=== PATIENT | female | born 1930 | race Hispanic/Latino ===

== ENCOUNTER 2016-08-03 19:17 | Emergency (ER) | payer MEDICARE ==
--- NOTE | 2016-08-03 20:39 | XRay Report ---
FINAL REPORT PROCEDURE: XR FOOT 2V LT TECHNIQUE: Left foot radiographs, AP, lateral, and oblique views. HISTORY: injury/swelling and pain COMPARISON: No prior studies are available for comparison. FINDINGS: Fracture (s) and/or Dislocation(s): None . Alignment: Normal. 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 Soft tissues: Normal. Bone mineralization: Normal. Foreign bodies: None. Calcaneal spurring: There are small calcaneal spurs. IMPRESSION: There is no acute bony or soft tissue abnormality.
--- NOTE | 2016-08-03 21:42 | Emergency Department Report ---
ED Lower Extremity HPI - General Chief Complaint: Extremity Injury, Lower Stated Complaint: LEFT FOOT PAIN Time Seen by Provider: 08/03/16 21:28 Source: patient Mode of arrival: Ambulatory Limitations: No Limitations - History of Present Illness Complaint: foot injury -: Sudden, This afternoon Injury: Foot: Left (top of her foot) Type of Injury: other (while walking) Severity: mild Severity scale (0 -10): 3 Improves With: NSAID Worsens With: movement, palpation Context: walking Associated Symptoms: snap/pop sensation, ambulatory. denies: swelling, unable to bear weight - Related Data Previous Rx's Medication Instructions Recorded Last Taken Type traMADol [Ultram 50 MG tab] 50 mg PO Q4HR PRN #10 tablet 08/03/16 Unknown Rx Allergies Allergy/AdvReac Type Severity Reaction Status Date / Time Sulfa (Sulfonamide Allergy Nausea Verified 08/03/16 19:54 Antibiotics) ED Review of Systems ROS: Stated complaint: LEFT FOOT PAIN Other details as noted in HPI Constitutional: denies: chills, fever Respiratory: denies: cough, orthopnea, shortness of breath, SOB with exertion, SOB at rest Cardiovascular: denies: chest pain, palpitations Gastrointestinal: denies: nausea, vomiting Musculoskeletal: joint swelling, arthralgia Skin: denies: rash, lesions Neurological: denies: headache ED Past Medical Hx - Past Medical History Hx Hypertension: Yes Hx Diabetes: Yes - Surgical History Additional Surgical History: bilateral knees,left shoulder - Social History Smoking Status: Never Smoker Substance Use Type: None - Medications Home Medications: Home Medications Medication Instructions Recorded Confirmed Last Taken Type traMADol [Ultram 50 MG tab] 50 mg PO Q4HR PRN #10 tablet 08/03/16 Unknown Rx ED Physical Exam - General Limitations: No Limitations General appearance: alert, in no apparent distress - Head Head exam: Present: atraumatic, normocephalic - ENT ENT exam: Present: normal exam, normal orophraynx - Neck Neck exam: Present: normal inspection - Respiratory Respiratory exam: Present: normal lung sounds bilaterally. Absent: respiratory distress - Cardiovascular Cardiovascular Exam: Present: regular rate - Expanded Lower Extremity Exam Left Foot/Toe exam: Present: full ROM, tenderness (mild tenderness when palpating midline dorsal aspect of proximal foot crepitus, deformity, or bony tenderness noted.). Absent: swelling, ecchymosis, deformity, crepidus, erythema Neuro vascular tendon exam: Present: no vascular compromise. Absent: pulse deficit, abnormal cap refill, motor deficit, sensory deficit, tendon deficit Gait: Positive: observed and normal - Neurological Exam Neurological exam: Present: alert, oriented X3, CN II-XII intact ED Course Vital Signs 08/03/16 08/03/16 19:42 19:50 Temperature 98.7 F 98.7 F Pulse Rate 89 89 Respiratory 18 18 Rate Blood Pressure 182/97 Blood Pressure 182/97 [Right] O2 Sat by Pulse 97 97 Oximetry Critical care attestation.: If time is entered above; I have spent that time in minutes in the direct care of this critically ill patient, excluding procedure time. ED Disposition Clinical Impression: Sprain of foot, left Disposition: DISCHARGED TO HOME OR SELFCARE Is pt being admited?: No Condition: Stable Instructions: Foot Sprain (ED) Prescriptions: traMADol [Ultram 50 MG tab] 50 mg PO Q4HR PRN #10 tablet PRN Reason: Pain
[2016-08-03 22:03] VITALS: BP 151/89
== END 2016-08-03 22:06 | disposition home or self-care (01) ==
LOC: ED 19:17
DX: S93.602A Unspecified sprain of left foot, initial encounter (principal); X58.XXXA Exposure to other specified factors, initial encounter; Y93.9 Activity, unspecified; Y92.9 Unspecified place or not applicable; Y99.9 Unspecified external cause status; I10 Essential (primary) hypertension; F17.200 Nicotine dependence, unspecified, uncomplicated
CPT/HCPCS: 99283